=== PATIENT | male | born 1955 | race Caucasian/White ===

== ENCOUNTER 2018-09-29 10:11 | Emergency (ER) | payer BC ==
[~2018-09-29] VITALS: Ht 170.2 cm; Wt 99.8 kg
[2018-09-29 10:23] VITALS: BP 168/108
[2018-09-29] MEDS ORDERED: fentaNYL PF VIAL 100 MCG/2 ML VIAL IV ONE ×2 (10:30→11:30)
[2018-09-29] MEDS ORDERED: ASPIRIN CHEWABLE 81 MG TABLET. PO ONE (10:30)
--- NOTE | 2018-09-29 10:50 | RAD ---
EXAM: Chest, single view. HISTORY: Chest and flank pain. COMPARISON: None. FINDINGS: A frontal view of the chest is obtained. There is no infiltrate, pleural effusion or pneumothorax. The heart is normal in size. There is a cardiac pacemaker with leads in expected position. IMPRESSION: No acute pulmonary finding. Electronically signed by: Jannie Young MD (09/29/2018 10:45 AM) [facility]
[2018-09-29 10:57] LABS: CALCIUM 9.4 mg/dL (8.5-10.1); GFR 75.7; POTASSIUM 3.5 mmol/L (3.5-5.1)
[2018-09-29 11:03] LABS: ALBUMIN 3.4 g/dL (3.4-5.0); ALBUMIN/GLOBULIN RATIO 0.9 (1.0-1.7); TOTAL BILIRUBIN 1.1 mg/dL (0.2-1.0); TOTAL PROTEIN 7.1 g/dL (6.4-8.2)
--- NOTE | 2018-09-29 11:04 | PHYS DOC ---
Past Medical History Past Medical History: Arrhythmia, Cancer, High Cholesterol, Hypertension, Hypothyroid, Other Additional Past Medical Histor: bradycardia, cardiac arrest, BPH, microcyctic adenexal tumor Past Surgical History: Appendectomy, Pacemaker, Other Additional Past Surgical Histo: tumor removed from face Additional Information: quit smoking 1982 Alcohol Use: Rarely Drug Use: None Adult General Chief Complaint Chief Complaint: RIB PAIN HPI HPI Patient is a 63 year old male presenting with chest pain started in his left back and then radiated to his left upper back area. he has had diarrhea for two or three days. He really had a lot of diarrhea was nonbloody she really didn't have any fever he was having some mild lower abdominal cramping over the weekend he actually felt a lot better this morning so get up to go to work and he developed a sharp pain in his left lower back radiating up into the left upper back area so she was some mild shortness of breath due to how severe the pain was. No anterior chest pain. Apparently, he had a cardiac arrest back in 2004 but on further questioning it sounds like it was related to bradycardia he had a pacemaker he said he had a cardiac catheter that was clean and he has had routine cardiology follow-up since that time that did not reveal anything acute he tells me. Review of Systems Review of Systems Constitutional: Denies fever or chills [] Eyes: Denies change in visual acuity, redness, or eye pain [] HENT: Denies nasal congestion or sore throat [] Cardiovascular: No additional information not addressed in HPI [] GI: Musculoskeletal Integument: Denies rash or skin lesions [] Neurologic: Denies headache, focal weakness or sensory changes [] Endocrine: Denies polyuria or polydipsia [] All other systems were reviewed and found to be within normal limits, except as documented in this note. Current Medications Current Medications Current Medications Medications (Trade) Dose Ordered Sig/Andres Start Time Stop Time Status Last Admin Dose Admin Aspirin (Children'S Aspirin) 324 mg 1X ONCE 09/29/18 10:30 09/29/18 10:37 DC 09/29/18 11:00 243 MG Fentanyl Citrate (Fentanyl 2ml Vial) 50 mcg 1X ONCE 09/29/18 11:30 09/29/18 11:31 DC Info (CONTRAST GIVEN -- Rx MONITORING) 1 each PRN DAILY PRN 09/29/18 11:30 10/01/18 11:29 Iohexol (Omnipaque 300 Mg/ml) 100 ml 1X ONCE 09/29/18 11:30 09/29/18 11:31 DC 09/29/18 11:52 100 ML Ondansetron HCl (Zofran) 4 mg 1X ONCE 09/29/18 11:30 09/29/18 11:31 DC 09/29/18 11:44 4 MG Sodium Chloride 1,000 ml @ 1,000 mls/hr 1X ONCE 09/29/18 11:30 09/29/18 12:29 DC 09/29/18 11:43 1,000 MLS/HR Allergies Allergies Allergies Coded Allergies Type Severity Reaction Last Updated Verified nitroglycerin Adverse Reaction Severe "Flooded heart", causing cardiac arrest 09/29/18 Yes Physical Exam Physical Exam Constitutional: Well developed, well nourishedMILD TO MODERATE distress, non- toxic appearance. [] HENT: Normocephalic, atraumatic, bilateral external ears normal, oropharynx moist, no oral exudates, nose normal. [] Eyes: PERRLA, EOMI, conjunctiva normal, no discharge. [] Neck: Normal range of motion, no tenderness, supple, no stridor. [] Cardiovascular:Heart rate regular rhythm, no murmur [] Lungs & Thorax: Bilateral breath sounds clear to auscultation [] HOLDING LEFT CHEST Abdomen: Bowel sounds normal, soft, no tenderness, no masses, no pulsatile masses. [] Skin: Warm, dry, no erythema, no rash. [] Back: Significant paraspinous tenderness noted in the left posterior back Extremities: No tenderness, no cyanosis, no clubbing, ROM intact, no edema. [] Neurologic: Alert and oriented X 3, normal motor function, normal sensory function, no focal deficits noted. [] Psychologic: Affect normal, judgement normal, mood normal. [] Current Patient Data Vital Signs Vital Signs Date Time Temp Pulse Resp B/P (MAP) Pulse Ox O2 Delivery O2 Flow Rate FiO2 09/29/18 11:50 Room Air 09/29/18 11:10 17 98 09/29/18 10:23 98.2 68 168/108 (128) 98.2 Lab Values Laboratory Tests Test 09/29/18 10:37 09/29/18 11:32 09/29/18 12:30 White Blood Count 5.1 x10^3/uL (4.0-11.0) Red Blood Count 5.22 x10^6/uL (4.30-5.70) Hemoglobin 15.8 g/dL (13.0-17.5) Hematocrit 45.6 % (39.0-53.0) Mean Corpuscular Volume 87 fL (79-100) Mean Corpuscular Hemoglobin 30 pg (25-35) Mean Corpuscular Hemoglobin Concent 35 g/dL (31-37) Red Cell Distribution Width 14.0 % (11.5-14.5) Platelet Count 130 x10^3/uL (140-400) L Neutrophils (%) (Auto) 62 % (31-73) Lymphocytes (%) (Auto) 20 % (24-48) L Monocytes (%) (Auto) 15 % (0-9) H Eosinophils (%) (Auto) 3 % (0-3) Basophils (%) (Auto) 1 % (0-3) Neutrophils # (Auto) 3.1 x10^3uL (1.8-7.7) Lymphocytes # (Auto) 1.0 x10^3/uL (1.0-4.8) Monocytes # (Auto) 0.8 x10^3/uL (0.0-1.1) Eosinophils # (Auto) 0.2 x10^3/uL (0.0-0.7) Basophils # (Auto) 0.0 x10^3/uL (0.0-0.2) Prothrombin Time 13.0 SEC (11.7-14.0) Prothrombin Time INR 1.0 (0.8-1.1) Sodium Level 138 mmol/L (136-145) Potassium Level 3.5 mmol/L (3.5-5.1) Chloride Level 102 mmol/L (98-107) Carbon Dioxide Level 26 mmol/L (21-32) Anion Gap 10 (6-14) Blood Urea Nitrogen 9 mg/dL (8-26) Creatinine 1.0 mg/dL (0.7-1.3) Estimated GFR (Cockcroft-Gault) 75.7 BUN/Creatinine Ratio 9 (6-20) Glucose Level 109 mg/dL (70-99) H Calcium Level 9.4 mg/dL (8.5-10.1) Total Bilirubin 1.1 mg/dL (0.2-1.0) H Aspartate Amino Transferase (AST) 33 U/L (15-37) Alanine Aminotransferase (ALT) 62 U/L (16-63) Alkaline Phosphatase 57 U/L (46-116) Troponin I Quantitative < 0.017 ng/mL (0.000-0.055) < 0.017 ng/mL (0.000-0.055) BR-Ruw-I-Type Natriuretic Peptide 59 pg/mL (0-124) Total Protein 7.1 g/dL (6.4-8.2) Albumin 3.4 g/dL (3.4-5.0) Albumin/Globulin Ratio 0.9 (1.0-1.7) L Urine Collection Type Unknown Urine Color Yellow Urine Clarity Clear Urine pH 6.5 Urine Specific [place] 1.010 Urine Protein Negative mg/dL (NEG-TRACE) Urine Glucose (UA) Negative mg/dL (NEG) Urine Ketones (Stick) Negative mg/dL (NEG) Urine Blood Negative (NEG) Urine Nitrite Negative (NEG) Urine Bilirubin Negative (NEG) Urine Urobilinogen Dipstick 1.0 mg/dL (0.2 mg/dL) Urine Leukocyte Esterase Negative (NEG) Urine RBC 0 /HPF (0-2) Urine WBC Occ /HPF (0-4) Urine Squamous Epithelial Cells Occ /LPF Urine Bacteria 0 /HPF (0-FEW) Urine Mucus Slight /LPF Laboratory Tests 09/29/18 10:37 Laboratory Tests 09/29/18 10:37 EKG EKG []EKG shows a normal sinus rhythm rate of 70 no acute ischemic changes noted this is a fairly normal-appearing EKG actually QTC is 437 interpreted by me the time of encounter. Radiology/Procedures Radiology/Procedures [] Impressions: COMPARISON: None. FINDINGS: A frontal view of the chest is obtained. There is no infiltrate, pleural effusion or pneumothorax. The heart is normal in size. There is a cardiac pacemaker with leads in expected position. IMPRESSION: No acute pulmonary finding. Electronically signed by: Jannie Young MD (09/29/2018 10:45 AM) [facility] DICTATED and SIGNED BY: JANNIE YOUNG MD DATE: 09/29/18 1045 1. There is no evidence of abdominal aortic aneurysm or dissection flap. 2. There is diverticulosis throughout the colon, difficult to exclude mild descending and sigmoid colonic wall thickening such as from diverticulitis or colitis although may be due to peristalsis and nondistention during exam. 3. There are several nonspecific mesenteric and retroperitoneal nodes, at least one mesenteric node considered borderline enlarged. Findings could be reactive in etiology. Follow-up to assess stability such as in 3 to 4 months may be beneficial. There is nonspecific hazy density of the mesenteric fat also which can be associated with mesenteritis, less commonly associated with etiology such as lymphoma. 4. There are 3 small foci of hyperenhancement of the left lobe of the liver, may be due to hyperenhancing lesions such as small hemangiomas although otherwise difficult to characterize given small size also for which attention on follow-up recommended. Electronically signed by: Sushil Givens MD (09/29/2018 12:51 PM) [facility] Course & Med Decision Making Course & Med Decision Making Pertinent Labs and Imaging studies reviewed. (See chart for details) DDX PE V. PTX V DISSECTION LESS LIKELY RI[] We did an extensive workup the CT scan as noted above no evidence of acute vascular emergency. Patient was given the results was given some Augmentin in case of mild diverticulitis he was noted specifically the importance of follow- up within 3-4 months for lymph node findings. Likely he had some back pain muscle spasm related to dehydration in the setting of recent diarrhea illness CT findings would be consistent with the above diarrheal type illness as well. Patient is very well-appearing we did 2 troponins that of an abundance of caution but this does not sound cardiac to me at all his EKG looked just fine. He'll be sent home in stable condition prescription for Augmentin and Flexeril encouraged to hydrate Dragon Disclaimer Dragon Disclaimer This electronic medical record was generated, in whole or in part, using a voice recognition dictation system. Departure Departure Impression: Primary Impression: Back pain Disposition: HOME, SELF-CARE Condition: IMPROVED Scripts Cyclobenzaprine Hcl (CYCLOBENZAPRINE HCL) 5 Mg Tablet 1 TAB PO TID PRN for PAIN, #15 TAB Prov: RIZWAN HUITRON MD 09/29/18 Amoxicillin/Potassium Clav (AUGMENTIN 875-125 TABLET) 1 Each Tablet 1 TAB PO BID, #20 TAB Prov: RIZWAN HUITRON MD 09/29/18 RIZWAN HUITRON MD Sep 29, 2018 11:04
[2018-09-29 11:11] LABS: BASO % 1 % (0-3); EOS # 0.2 x10^3/uL (0.0-0.7); EOS % 3 % (0-3); HEMATOCRIT 45.6 % (39.0-53.0); HEMOGLOBIN 15.8 g/dL (13.0-17.5); LYMPH % 20 % (24-48); MEAN CORPUSCULAR HEMOGLOBIN 30 pg (25-35); MEAN CORPUSCULAR HGB CONC 35 g/dL (31-37); MEAN CORPUSCULAR VOLUME 87 fL (79-100); MONO # 0.8 x10^3/uL (0.0-1.1); MONO % 15 % (0-9); NEUT # 3.1 x10^3uL (1.8-7.7); NEUT % 62 % (31-73); PLATELET COUNT 130 x10^3/uL (140-400); RED BLOOD COUNT 5.22 x10^6/uL (4.30-5.70); WHITE BLOOD COUNT 5.1 x10^3/uL (4.0-11.0)
[2018-09-29] MEDS ORDERED: CONTRAST GIVEN. MC PRN (11:30)
[2018-09-29] MEDS ORDERED: IV NORMAL SALINE 1000ML BAG 1,000 ML IV ONE (11:30)
[2018-09-29] MEDS ORDERED: IOHEXOL 300 MG/ML 100ML VIAL. IV ONE (11:30)
[2018-09-29] MEDS ORDERED: ONDANSETRON PF 4 MG/2 ML VIAL. IV ONE (11:30)
[2018-09-29 12:02] LABS: BILIRUBIN,URINE NEGATIVE (NEG); CLARITY,URINE CLEAR; COLOR,URINE YELLOW; NITRITE,URINE NEGATIVE (NEG); PH,URINE 6.5; PROTEIN,URINE NEGATIVE (NEG-TRACE)
[2018-09-29 12:20] LABS: RBC,URINE 0 /HPF (0-2); WBC,URINE OCC /HPF (0-4)
[2018-09-29 12:21] LABS: BACTERIA,URINE 0 /HPF (0-FEW); SQUAMOUS EPITHELIAL CELL,UR OCC /LPF
--- NOTE | 2018-09-29 12:55 | RAD ---
CT ANGIO CHEST ABD PELVIS Indication: Left side chest and flank pain Technique: Pre and postcontrast CT imaging was performed of the chest, abdomen, pelvis, multiplanar reconstruction images to include MIP and 3-D reconstruction images submitted. One or more of the following individualized dose reduction techniques were utilized for this examination: 1. Automated exposure control 2. Adjustment of the mA and/or kV according to patient size 3. Use of iterative reconstruction technique. Comparison: None. CHEST: Findings: Thoracic aortic caliber is within normal limits, no dissection flap or adjacent fluid collection/hematoma. There are some small mediastinal nodes which are partially calcified. There is no abnormality of the visualized thyroid gland. There is left electronic cardiac device. There is very small quantity of pericardial fluid. There is no pleural fluid, pneumothorax, infiltrate. Major airways are patent. IMPRESSION: 1. There is no evidence of thoracic aortic aneurysm or dissection, no significant acute abnormality identified. Abdomen pelvis: FINDINGS: Abdominal aortic caliber is within normal limits, no dissection flap. There is minimal scattered plaque. Superior mesenteric and celiac arteries are patent. Single renal arteries bilaterally are patent. Inferior mesenteric artery is patent. There is no renal calculus or hydronephrosis. Both kidneys enhance. There is mild strandy change left perinephric fat. There is no adrenal nodularity. Gallbladder is present without obvious intraluminal abnormality by CT. No focal abnormality is identified of the pancreas or spleen. There are 3 small foci of hyperenhancement of the left lobe of the liver with the largest about 0.8 cm. There is scattered diverticulosis throughout the colon, difficult to exclude mild wall thickening such as of the descending and sigmoid colon. Bowel is not considered significantly dilated. Appendix is not clearly identified if still present. There is no free air or free fluid. There is very subtle hazy density of the mesenteric fat. There are several nonspecific mesenteric nodes, largest about 1 cm short axis dimension axial image 133 more centrally. There are several small retroperitoneal nodes, largest about 0.8 cm short axis dimension. IMPRESSION: 1. There is no evidence of abdominal aortic aneurysm or dissection flap. 2. There is diverticulosis throughout the colon, difficult to exclude mild descending and sigmoid colonic wall thickening such as from diverticulitis or colitis although may be due to peristalsis and nondistention during exam. 3. There are several nonspecific mesenteric and retroperitoneal nodes, at least one mesenteric node considered borderline enlarged. Findings could be reactive in etiology. Follow-up to assess stability such as in 3 to 4 months may be beneficial. There is nonspecific hazy density of the mesenteric fat also which can be associated with mesenteritis, less commonly associated with etiology such as lymphoma. 4. There are 3 small foci of hyperenhancement of the left lobe of the liver, may be due to hyperenhancing lesions such as small hemangiomas although otherwise difficult to characterize given small size also for which attention on follow-up recommended. Electronically signed by: Sushil Givens MD (09/29/2018 12:51 PM) [facility]
[2018-09-29] MEDS ORDERED: AMOX1TAB61 PO (13:18)
[2018-09-29] MEDS ORDERED: CYCL5TAB PO (13:18)
--- NOTE | 2018-09-29 15:31 | EKG ---
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
== END 2018-09-29 13:45 | disposition home or self-care (01) ==
LOC: ER 10:11
DX: M54.6 Pain in thoracic spine (principal); R07.89 Other chest pain; R19.7 Diarrhea, unspecified; R10.30 Lower abdominal pain, unspecified; R06.02 Shortness of breath; R00.1 Bradycardia, unspecified; E78.00 Pure hypercholesterolemia, unspecified; I10 Essential (primary) hypertension; E03.9 Hypothyroidism, unspecified; Z90.89 Acquired absence of other organs; Z87.891 Personal history of nicotine dependence; Z95.0 Presence of cardiac pacemaker; Z88.8 Allergy status to other drugs, medicaments and biological substances
CPT/HCPCS: 36415; 71045; 71275; 74174; 80053; 81001; 83880; 84484; 85025; 85610; 93005; 96361; 96374; 96375; 99284; J2405; J3010; J7030; Q9967

== ENCOUNTER → 2018-12-25 | Outpatient (CLI) | payer BC ==
[~2018-12-25] MED LIST: AMOX1TAB61 PO; CONTRAST GIVEN. MC PRN; CYCL5TAB PO; IOHEXOL 300 MG/ML 100ML VIAL. IV ONE
--- NOTE | 2018-12-25 16:49 | KCIC ---
EXAM: CT angiogram Chest, Abdomen and Pelvis with and without IV contrast CLINICAL HISTORY: Pain radiating to the back COMPARISON: 10/09/2018 TECHNIQUE: Helical CT of the chest, abdomen and pelvis was performed without IV contrast. Subsequently CT of the chest abdomen and pelvis was performed following the administration of intravenous contrast using arterial angiographic technique. MIP reconstructions were generated.. ---PQRS compliance statement - One or more of the following individualized dose reduction techniques were utilized for this study: 1. Automated exposure control 2. Adjustment of the mA and/or kV according to patient size 3. Use of iterative reconstruction technique--- FINDINGS: CT ANGIOGRAM: The aorta is normal in caliber throughout without evidence for aneurysmal dilatation or dissection. Of note, contrast density is suboptimal at the level of the iliac bifurcation and distally and therefore distal evaluation is limited. Intermittent atherosclerotic calcifications are seen. Three-vessel aortic arch is seen. The origins of the great vessels are widely patent. The origin of the celiac trunk and SMA are widely patent. The [place] is also patent at the origin single bilateral renal arteries are seen. Measurements: Ascending aorta at the right pulmonary artery: 2.7 cm. Aortic arch: 2.3 cm. Descending aorta at the left pulmonary artery: 2.3 cm. Aorta at the diaphragmatic hiatus: 2.2 cm. Infrarenal aorta: 1.5 cm. Chest: The heart is not enlarged. No pericardial effusion. Pacer leads are seen within the heart. A few prominent mediastinal and hilar lymph nodes are seen, not enlarged by size criteria. No axillary lymphadenopathy. No pleural effusion or pneumothorax. Linear opacities in the lower lobes likely scarring/atelectasis. A 4 mm right lower lobe lung nodule is seen (series 9 image 43). Abdomen and Pelvis: Relative hepatic hypoattenuation may be seen with hepatic steatosis. A few hyperenhancing foci within the liver may represent flash filling hemangiomas. Spleen is unremarkable. Gallbladder is normal. No biliary ductal dilatation. Pancreas is unremarkable. Symmetric nephrograms. No focal renal lesion. No hydronephrosis. Moderate colonic stool content is seen. The appendix is not convincingly seen. Colonic diverticulosis without evidence for acute diverticulitis. No abdominal or pelvic ascites. The bladder is only partially distended with bladder wall thickening, may be seen with cystitis. Meg appearance of the central mesentery with associated small but mildly prominent lymph nodes. Otherwise, no abdominal pelvic lymphadenopathy. Bones: Osseous structures are grossly stable. IMPRESSION: 1. Aorta is normal in caliber throughout without evidence for dissection or aneurysmal dilatation. 2. Meg appearance of the central mesentery more prominent on today's exam, nonspecific, but some causes include mesenteritis, malignancy such as mesenteric lymphoma, and mesenteric panniculitis. 3. Relative hepatic hypoattenuation may be seen with hepatic steatosis. 4. Colonic diverticulosis without evidence for acute diverticulitis. 5. Hyperenhancing hepatic lesions are again seen, possibly flash filling hemangiomas. Electronically signed by: Christian Jacobson MD (12/25/2018 4:46 PM) [id number]
== END | disposition home or self-care (01) ==
LOC: KCIC CT 08:20
PROVIDERS: ATTEND Family Medicine
DX: K65.4 Sclerosing mesenteritis (principal); K57.30 Diverticulosis of large intestine without perforation or abscess without bleeding; K76.89 Other specified diseases of liver; I70.0 Atherosclerosis of aorta; R91.1 Solitary pulmonary nodule; R59.0 Localized enlarged lymph nodes; Z95.0 Presence of cardiac pacemaker
CPT/HCPCS: 71275; 74177; 82565; Q9967